=== PATIENT | female | born 1960 | race Caucasian/White ===

== ENCOUNTER 2017-02-26 17:29 | Emergency (ER) | payer OTHER ==
[2017-02-26 19:21] VITALS: BP 130/80
== END 2017-02-26 19:43 | disposition left against medical advice (07) ==
LOC: ED 17:29
DX: R51 Headache (principal); Z53.21 Procedure and treatment not carried out due to patient leaving prior to being seen by health care provider

== ENCOUNTER 2018-05-21 16:28 | Observation (INO) | payer OTHER ==
[2018-05-21] MEDS ORDERED: NS 0.9% 1000 ML* 2,000 ML IV ONE (16:41)
[2018-05-21] MEDS ORDERED: PROCHLORPERAZINE INJ 5 MG/ML 2 ML VIAL IV PRN (16:42)
[2018-05-21 17:04] LABS: ABS Basophils 0 10^3/ul (0-0.2); ABS Eosinophils 0 10^3/ul (0-0.6); ABS Lymphocytes 1.5 10^3/ul (1.0-4.8); ABS Monocytes 0.5 10^3/ul (0-0.8); ABS Neutrophils 8.5 10^3/ul (1.5-7.7); ABS Nucleated RBC 0 10^3/ul; Eosinophil % 0 % (0-6); Hematocrit 46 % (35-47); Hemoglobin 15.6 g/dl (12.0-16.0); Lymphocyte % 14.1 % (25-47); Mean Corpuscular HGB Conc 34 g/dl (31-36); Mean Corpuscular Hemoglobin 33 pg (27-31); Mean Corpuscular Volume 95 fL (80-97); Mean Platelet Volume 7.8 um3 (7.4-10.4); Nucleated Red Blood Cells % 0.1; Platelet Count 269 10^3/ul (150-450); Red Blood Count 4.81 10^6/ul (4.00-5.40); Red Cell Distribution Width 14 % (10.5-15); White Blood Count 10.4 10^3/ul (3.5-10.8)
[2018-05-21 17:17] LABS: EGFR Non-African American 32.2 (>60)
[2018-05-21] MEDS: oxyCODONE TAB* 5 MG TAB PO PRN (18:26)
[2018-05-21 19:51] LABS: Urine Appearance Cloudy; Urine Blood 1+ (Negative); Urine Color Yellow; Urine Ketones 2+ (Negative); Urine Protein 1+(30 mg/dL) (Negative); Urine Specific Gravity 1.013 (1.010-1.030); Urine Urobilinogen Negative (Negative)
[2018-05-21 20:44] LABS: EGFR Non-African American 35.9 (>60)
--- NOTE | 2018-05-21 22:00 | ED ---
Pepe Warner Jacob, scribed clemente Sioux CitySherman MD on 05/21/18 at 1639 . GI/ HPI - HPI Summary HPI Summary: Pt is a 58 y/o F brought in by EMS due to constant emesis for the past two days. In the room, pt states that her vomiting began six months ago. Pt also reports nausea which waxes and wanes, occurring once every couple of months. She states that she has not done anything about this Sx but also notes that she has seen her doctor at the [facility]. She reports that her doctor has been switching her among drugs constantly. Pt states she is on BP meds, taking topamax for migraines alongside "a bunch of other things". She notes that emesis began about the time she started taking topamax six months ago. Pt reports migraines have been less frequent recently but also states that her "brain is screwy" since start of topamax. She denies headaches but states she, "cannot think clearly". Pt denies abdominal pain, abnormal bowel movements, and diarrhea. Pt states she has not smoked cigarettes nor marijuana in past month. - History of Current Complaint Stated Complaint: VOMITING Hx Obtained From: Patient Onset/Duration: Started Weeks Ago - 6 months ago, Still Present Timing: Intermittent Location of Pain: Other - denies pain Associated Signs and Symptoms: Positive: Nausea, Vomiting, Other: - POSITIVE: migraines NEGATIVE: abnormal bowel movements, headaches. Negative: Diarrhea, Abdominal Pain - Allergy/Home Medications Allergies/Adverse Reactions: Allergies Allergy/AdvReac Type Severity Reaction Status Date / Time MS Bee Venom [Bee Venom] Allergy Severe Swelling Verified 07/17/15 10:30 Of Face,Lips,& Throat MS Diphenhydramine Allergy Severe Hives Verified 07/17/15 10:30 [From Benadryl] MS Epinephrine [Epinephrine] Allergy Severe See Comment Verified 07/17/15 10:30 MS Sulfa Drugs [Sulfa Drugs] Allergy Severe Hives Verified 07/17/15 10:30 Home Medications: Home Medications Carbamide Peroxide 6.5% OTIC* [DEBROX 6.5% Otic*] 5 drop BOTH EARS BID PRN 05/21 [History Confirmed 05/21/18] Cholecalciferol TAB* [Vitamin D TAB*] 1,000 unit PO DAILY 05/21/18 [History Confirmed 05/21/18] Gabapentin CAP(*) [Neurontin 300 CAP(*)] 300 mg PO QID 05/21/18 [History Confirmed 05/21/18] Lisinopril TAB* [Prinivil TAB*] 10 mg PO DAILY 05/21/18 [History Confirmed 05/21] Pravastatin (NF) [Pravachol (NF)] 40 mg PO BEDTIME 05/21/18 [History Confirmed 05/21/18] Ranitidine TAB (NF) [Zantac TAB (NF)] 150 mg PO DAILY 05/21/18 [History Confirmed 05/21/18] SUMAtriptan TAB* [Imitrex TAB*] 100 mg PO ONCE PRN 05/21/18 [History Confirmed 05/21/18] Topiramate TAB(*) [Topamax 100 mg tab] 100 mg PO BEDTIME 05/21/18 [History Confirmed 05/21/18] Vitamin E CAP* 400 unit PO DAILY 05/21/18 [History Confirmed 05/21/18] amLODIPine TAB* [Norvasc 5 mg TAB*] 5 mg PO DAILY 05/21/18 [History Confirmed ] PMH/Surg Hx/FS Hx/Imm Hx Endocrine/Hematology History: Denies: Hx Anticoagulant Therapy, Hx Diabetes, Hx Thyroid Disease Cardiovascular History: Denies: Hx Hypertension, Hx Pacemaker/ICD Respiratory History: Denies: Hx Asthma, Hx Chronic Obstructive Pulmonary Disease (COPD) History: Denies: Hx Renal Disease Neurological History: Denies: Hx Dementia, Hx Seizures Psychiatric History: Denies: Hx Substance Abuse Infectious Disease History: Denies: Hx Clostridium Difficile, Hx Hepatitis, Hx Human Immunodeficiency Virus (HIV), Hx Shingles, Hx Tuberculosis - Family History Known Family History: Negative: Blood Disorder - Social History Alcohol Use: Occasionally Substance Use Type: Reports: None Smoking Status (MU): Heavy Every Day Tobacco Smoker Review of Systems Positive: Vomiting, Nausea, Other - NEGATIVE: decreased appetite, abnormal bowel movements. Negative: Abdominal Pain, Diarrhea Neurological: Other - POSITIVE: migraines, "cannot think clearly" All Other Systems Reviewed And Are Negative: Yes Physical Exam - Summary Physical Exam Summary: Appearance: Well-appearing, Well-nourished, lying in bed comfortably Skin: Warm, dry, no obvious rash Eyes: sclera anicteric, no conjunctival pallor ENT: mucous membranes moist, pharynx appears normal Neck: Supple, nontender Respiratory: Clear to auscultation, no signs of respiratory distress Cardiovascular: Pulses are raised, mild tachycardia. Normal otherwise. Abdomen: Soft, nontender, normal active bowel sounds present Musculoskeletal: Normal, Strength/ROM Intact Neurological: A&Ox3, awake and alert, mentation is normal, speech is fluent and appropriate Psychiatric: affect is normal, does not appear anxious or depressed Triage Information Reviewed: Yes Vital Signs On Initial Exam: 1633: Pulse rate 121, o2 saturation 99, BP 128/84, BP mean 96 1640: Temp 96.7, temporal artery scan, pulse rate 123, respiratory rate 18, o2 saturation 98, patient on room air, BP 129/87 Vital Signs Reviewed: Yes Diagnostics - Vital Signs Vital Signs Temp Pulse Resp BP Pulse Ox 05/21/18 20:04 109 124/71 97 05/21/18 20:00 112 99 05/21/18 19:34 114 143/87 98 05/21/18 19:25 109 99 05/21/18 19:24 112 115/82 98 05/21/18 18:08 115 97 05/21/18 17:33 116 137/82 96 05/21/18 17:03 113 137/86 98 05/21/18 17:00 115 99 05/21/18 16:40 35.9 C 123 18 129/87 98 05/21/18 16:33 121 129/84 99 - Laboratory Lab Results: Lab Results 05/21/18 05/21/18 05/21/18 Range/Units 16:51 16:51 19:34 WBC 10.4 (3.5-10.8) 10^3/ul RBC 4.81 (4.00-5.40) 10^6/ul Hgb 15.6 (12.0-16.0) g/dl Hct 46 (35-47) % MCV 95 (80-97) fL MCH 33 H (27-31) pg MCHC 34 (31-36) g/dl RDW 14 (10.5-15) % Plt Count 269 (150-450) 10^3/ul MPV 7.8 (7.4-10.4) um3 Neut % (Auto) 81.3 (38-83) % Lymph % (Auto) 14.1 L (25-47) % [place] % (Auto) 4.3 (0-7) % Eos % (Auto) 0 (0-6) % Baso % (Auto) 0.3 (0-2) % Absolute Neuts (auto) 8.5 H (1.5-7.7) 10^3/ul Absolute Lymphs (auto) 1.5 (1.0-4.8) 10^3/ul Absolute Monos (auto) 0.5 (0-0.8) 10^3/ul Absolute Eos (auto) 0 (0-0.6) 10^3/ul Absolute Basos (auto) 0 (0-0.2) 10^3/ul Absolute Nucleated RBC 0 10^3/ul Nucleated RBC % 0.1 Sodium 130 L (135-145) mmol/L Potassium 3.8 (3.5-5.0) mmol/L Chloride 80 L (101-111) mmol/L Carbon Dioxide 12 L* (22-32) mmol/L Anion Gap 38 H (2-11) mmol/L BUN 21 (6-24) mg/dL Creatinine 1.64 H (0.51-0.95) mg/dL Est GFR ( Amer) 38.9 (>60) Est GFR (Non-Af Amer) 32.2 (>60) BUN/Creatinine Ratio 12.8 (8-20) Glucose 128 H (70-100) mg/dL Lactic Acid (0.5-2.0) mmol/L Calcium 10.2 (8.6-10.3) mg/dL Total Bilirubin 0.60 (0.2-1.0) mg/dL AST 25 (13-39) U/L ALT 16 (7-52) U/L Alkaline Phosphatase 89 (34-104) U/L Total Protein 8.1 (6.4-8.9) g/dL Albumin 4.9 (3.2-5.2) g/dL Globulin 3.2 (2-4) g/dL Albumin/Globulin Ratio 1.5 (1-3) Lipase 40 (11.0-82.0) U/L Urine Color Yellow Urine Appearance Cloudy Urine pH 5.0 (5-9) Ur Specific [place] 1.013 (1.010-1.030) Urine Protein 1+(30 mg/dl) A (Negative) Urine Ketones 2+ A (Negative) Urine Blood 1+ A (Negative) Urine Nitrate Negative (Negative) Urine Bilirubin Negative (Negative) Urine Urobilinogen Negative (Negative) Ur Leukocyte Esterase Trace A (Negative) Urine WBC (Auto) Trace(0-5/hpf) (Absent) Urine RBC (Auto) 1+(3-5/hpf) A (Absent) Ur Squamous Epith Cells Present A (Absent) Urine Bacteria Absent (Absent) Hyaline Casts Present A (Absent) Urine Yeast Present A (Absent) Urine Glucose Negative (Negative) Salicylates (<30) mg/dL 05/21/18 05/21/18 Range/Units 20:20 20:20 WBC (3.5-10.8) 10^3/ul RBC (4.00-5.40) 10^6/ul Hgb (12.0-16.0) g/dl Hct (35-47) % MCV (80-97) fL MCH (27-31) pg MCHC (31-36) g/dl RDW (10.5-15) % Plt Count (150-450) 10^3/ul MPV (7.4-10.4) um3 Neut % (Auto) (38-83) % Lymph % (Auto) (25-47) % [place] % (Auto) (0-7) % Eos % (Auto) (0-6) % Baso % (Auto) (0-2) % Absolute Neuts (auto) (1.5-7.7) 10^3/ul Absolute Lymphs (auto) (1.0-4.8) 10^3/ul Absolute Monos (auto) (0-0.8) 10^3/ul Absolute Eos (auto) (0-0.6) 10^3/ul Absolute Basos (auto) (0-0.2) 10^3/ul Absolute Nucleated RBC 10^3/ul Nucleated RBC % Sodium 131 L (135-145) mmol/L Potassium 3.7 (3.5-5.0) mmol/L Chloride 86 L (101-111) mmol/L Carbon Dioxide 13 L* (22-32) mmol/L Anion Gap 32 H (2-11) mmol/L BUN 21 (6-24) mg/dL Creatinine 1.49 H (0.51-0.95) mg/dL Est GFR ( Amer) 43.5 (>60) Est GFR (Non-Af Amer) 35.9 (>60) BUN/Creatinine Ratio 14.1 (8-20) Glucose 145 H (70-100) mg/dL Lactic Acid 1.6 (0.5-2.0) mmol/L Calcium 8.8 (8.6-10.3) mg/dL Total Bilirubin (0.2-1.0) mg/dL AST (13-39) U/L ALT (7-52) U/L Alkaline Phosphatase (34-104) U/L Total Protein (6.4-8.9) g/dL Albumin (3.2-5.2) g/dL Globulin (2-4) g/dL Albumin/Globulin Ratio (1-3) Lipase (11.0-82.0) U/L Urine Color Urine Appearance Urine pH (5-9) Ur Specific [place] (1.010-1.030) Urine Protein (Negative) Urine Ketones (Negative) Urine Blood (Negative) Urine Nitrate (Negative) Urine Bilirubin (Negative) Urine Urobilinogen (Negative) Ur Leukocyte Esterase (Negative) Urine WBC (Auto) (Absent) Urine RBC (Auto) (Absent) Ur Squamous Epith Cells (Absent) Urine Bacteria (Absent) Hyaline Casts (Absent) Urine Yeast (Absent) Urine Glucose (Negative) Salicylates < 2.50 (<30) mg/dL Result Diagrams: 05/21/18 16:51 05/21/18 20:20 Lab Statement: Any lab studies that have been ordered have been reviewed, and results considered in the medical decision making process. GIGU Course/Dx - Course Course Of Treatment: 58 y/o woman with acute exacerbation of her somewhat chronic vomiting. She has received 2 l IVF and antiemetic but feels only marginally better. Labs are notable for marked metabolic derangement with low bicarb, high AG suggestive of high AG metabolic acidosis; ABG is pending to further delineate the nature of this problem. Of interest she had a less severe version of this in 2015 though I cannot find a record of what became of the problem then. - Diagnoses Provider Diagnoses: Nausea & vomiting, Dehydration, Metabolic acidosis - Physician Notifications Discussed Care Of Patient With: Pavel Maynard Time Discussed With Above Provider: 20:30 Instructed by Provider To: Admit As Inpatient Discharge - Sign-Out/Discharge Documenting (check all that apply): Discharge/Admit/Transfer - Discharge Plan Condition: Guarded Disposition: ADMITTED TO [facility] Referrals: Arthur Lock MD [Primary Care Provider] - - Billing Disposition and Condition Condition: GUARDED Disposition: Admitted to [facility] The documentation as recorded by the Pepe santiago Jacob accurately reflects the service I personally performed and the decisions made by me, Sherman Lynn MD.
[2018-05-21] MEDS ORDERED: Ondansetron ODT TAB* 4 MG PO PRN (22:26)
[2018-05-21] MEDS ORDERED: Melatonin 3 MG TAB PO PRN (22:26)
[2018-05-21] MEDS ORDERED: Albuterol 2.5 MG/3 ML NEB.SOL* (0.083%) INH PRN (22:26)
[2018-05-21] MEDS ORDERED: Acetaminophen SUPP* 650 MG SUPP PR PRN (22:28)
--- NOTE | 2018-05-21 22:29 | HP ---
H&P (Free Text) History and Physical: PCP: Ankur Lock MD Date/Time: 05/21/2018 2150 CC: N/V HPI: Mrs Hartley is a 58YO female exceeding poor historian who states she is here because of N/V for the past 48H. She denies chest pain, SOB, black or bloody content, abdominal pain, F/C, sweats, headache, or other issues. She denies any change or new symptoms today to prompt her evaluation. She has been having episodes of N/V for the past 6 months and [facility]. PMedHx While she denies any medical problems, she admits to taking medications although she cannot say what they are or what they are for. When asked what meds she takes will only reply, "You should have a list of those." Ambulatory Orders Carbamide Peroxide 6.5% OTIC* [DEBROX 6.5% Otic*] 5 drop BOTH EARS BID PRN 05/21 Cholecalciferol TAB* [Vitamin D TAB*] 1,000 unit PO DAILY 05/21/18 Gabapentin CAP(*) [Neurontin 300 CAP(*)] 300 mg PO QID 05/21/18 Lisinopril TAB* [Prinivil TAB*] 10 mg PO DAILY 05/21/18 Pravastatin (NF) [Pravachol (NF)] 40 mg PO BEDTIME 05/21/18 Ranitidine TAB (NF) [Zantac TAB (NF)] 150 mg PO DAILY 05/21/18 SUMAtriptan TAB* [Imitrex TAB*] 100 mg PO ONCE PRN 05/21/18 Topiramate TAB(*) [Topamax 100 mg tab] 100 mg PO BEDTIME 05/21/18 Vitamin E CAP* 400 unit PO DAILY 05/21/18 amLODIPine TAB* [Norvasc 5 mg TAB*] 5 mg PO DAILY 05/21/18 Allergies MS Bee Venom [Bee Venom] Allergy (Severe, Verified 07/17/15 10:30) Swelling Of Face,Lips,& Throat MS Diphenhydramine [From Benadryl] Allergy (Severe, Verified 07/17/15 10:30) Hives MS Epinephrine [Epinephrine] Allergy (Severe, Verified 07/17/15 10:30) See Comment HYPOTENSION, "CARDIAC ARREST" MS Sulfa Drugs [Sulfa Drugs] Allergy (Severe, Verified 07/17/15 10:30) Hives PSurgHx Denies SocHx: denies tobacco although she smells highly of it, denies alcohol and recreational drugs; lives with her boyfriend; unemployed; full code status FamHx: unknown per patient ROS: as above, otherwise reviewed and all were negative vitals: Vital Signs Temp 35.9 C 05/21/18 16:40 Pulse 109 05/21/18 20:04 Resp 18 05/21/18 16:40 BP 124/71 05/21/18 20:04 Pulse Ox 97 05/21/18 20:04 Intake & Output 05/20/18 05/21/18 05/21/18 23:59 11:59 23:59 Intake Total 1000 Balance 1000 Weight 64.864 kg Intake: IV Fluids 1000 Constitutional: NAD, normally developed, overweight unkempt malodorous white female appearing much older than her reported age HEENM: atraumatic; sclera/conjunctiva: anicteric/clear; hearing: clinically intact; oropharynx: clear, mucosa tacky Neck: soft tissue: non-tender; thyroid: non-tender Pulmonary: clear to auscultation bilaterally, fair aeration, no accessory muscle use CV: TR/RR, normal S1S2, no carotid bruit, no jugular venous distention, 2+ B DP/ PT, no edema Abdominal: soft, non-distended, non-tender, no rebound/guarding/rigidity, normoactive bowel sounds, no hepatosplenomegaly or masses, no costovertebral angle tenderness Musculoskeletal: general: grossly intact, non-tender Integumental: normal appearance and texture of exposed skin Psychiatric orientation: AA&O to PPS affect: confrontational mood: irritable, uncooperative eye contact: fair content: entirely unreliable responses: timely insight: poor Testing: Lab Results 05/21/18 05/21/18 05/21/18 Range/Units 16:51 16:51 19:34 WBC 10.4 (3.5-10.8) 10^3/ul RBC 4.81 (4.00-5.40) 10^6/ul Hgb 15.6 (12.0-16.0) g/dl Hct 46 (35-47) % MCV 95 (80-97) fL MCH 33 H (27-31) pg MCHC 34 (31-36) g/dl RDW 14 (10.5-15) % Plt Count 269 (150-450) 10^3/ul MPV 7.8 (7.4-10.4) um3 Neut % (Auto) 81.3 (38-83) % Lymph % (Auto) 14.1 L (25-47) % [place] % (Auto) 4.3 (0-7) % Eos % (Auto) 0 (0-6) % Baso % (Auto) 0.3 (0-2) % Absolute Neuts (auto) 8.5 H (1.5-7.7) 10^3/ul Absolute Lymphs (auto) 1.5 (1.0-4.8) 10^3/ul Absolute Monos (auto) 0.5 (0-0.8) 10^3/ul Absolute Eos (auto) 0 (0-0.6) 10^3/ul Absolute Basos (auto) 0 (0-0.2) 10^3/ul Absolute Nucleated RBC 0 10^3/ul Nucleated RBC % 0.1 ABG pH (7.35-7.45) ABG pCO2 (35-45) mmHg ABG pO2 (80-100) mmHg ABG HCO3 (19-31) mmol/L ABG O2 Saturation (95-98) % ABG Base Excess (-2.0-2.0) Sodium 130 L (135-145) mmol/L Potassium 3.8 (3.5-5.0) mmol/L Chloride 80 L (101-111) mmol/L Carbon Dioxide 12 L* (22-32) mmol/L Anion Gap 38 H (2-11) mmol/L BUN 21 (6-24) mg/dL Creatinine 1.64 H (0.51-0.95) mg/dL Est GFR ( Amer) 38.9 (>60) Est GFR (Non-Af Amer) 32.2 (>60) BUN/Creatinine Ratio 12.8 (8-20) Glucose 128 H (70-100) mg/dL Lactic Acid (0.5-2.0) mmol/L Calcium 10.2 (8.6-10.3) mg/dL Total Bilirubin 0.60 (0.2-1.0) mg/dL AST 25 (13-39) U/L ALT 16 (7-52) U/L Alkaline Phosphatase 89 (34-104) U/L Total Protein 8.1 (6.4-8.9) g/dL Albumin 4.9 (3.2-5.2) g/dL Globulin 3.2 (2-4) g/dL Albumin/Globulin Ratio 1.5 (1-3) Lipase 40 (11.0-82.0) U/L Urine Color Yellow Urine Appearance Cloudy Urine pH 5.0 (5-9) Ur Specific [place] 1.013 (1.010-1.030) Urine Protein 1+(30 mg/dl) A (Negative) Urine Ketones 2+ A (Negative) Urine Blood 1+ A (Negative) Urine Nitrate Negative (Negative) Urine Bilirubin Negative (Negative) Urine Urobilinogen Negative (Negative) Ur Leukocyte Esterase Trace A (Negative) Urine WBC (Auto) Trace(0-5/hpf) (Absent) Urine RBC (Auto) 1+(3-5/hpf) A (Absent) Ur Squamous Epith Cells Present A (Absent) Urine Bacteria Absent (Absent) Hyaline Casts Present A (Absent) Urine Yeast Present A (Absent) Urine Glucose Negative (Negative) Salicylates (<30) mg/dL 05/21/18 05/21/18 05/21/18 Range/Units 20:20 20:20 21:50 WBC (3.5-10.8) 10^3/ul RBC (4.00-5.40) 10^6/ul Hgb (12.0-16.0) g/dl Hct (35-47) % MCV (80-97) fL MCH (27-31) pg MCHC (31-36) g/dl RDW (10.5-15) % Plt Count (150-450) 10^3/ul MPV (7.4-10.4) um3 Neut % (Auto) (38-83) % Lymph % (Auto) (25-47) % [place] % (Auto) (0-7) % Eos % (Auto) (0-6) % Baso % (Auto) (0-2) % Absolute Neuts (auto) (1.5-7.7) 10^3/ul Absolute Lymphs (auto) (1.0-4.8) 10^3/ul Absolute Monos (auto) (0-0.8) 10^3/ul Absolute Eos (auto) (0-0.6) 10^3/ul Absolute Basos (auto) (0-0.2) 10^3/ul Absolute Nucleated RBC 10^3/ul Nucleated RBC % ABG pH 7.31 L (7.35-7.45) ABG pCO2 24 L (35-45) mmHg ABG pO2 82 (80-100) mmHg ABG HCO3 15.3 L (19-31) mmol/L ABG O2 Saturation 97.2 (95-98) % ABG Base Excess -12.2 L (-2.0-2.0) Sodium 131 L (135-145) mmol/L Potassium 3.7 (3.5-5.0) mmol/L Chloride 86 L (101-111) mmol/L Carbon Dioxide 13 L* (22-32) mmol/L Anion Gap 32 H (2-11) mmol/L BUN 21 (6-24) mg/dL Creatinine 1.49 H (0.51-0.95) mg/dL Est GFR ( Amer) 43.5 (>60) Est GFR (Non-Af Amer) 35.9 (>60) BUN/Creatinine Ratio 14.1 (8-20) Glucose 145 H (70-100) mg/dL Lactic Acid 1.6 (0.5-2.0) mmol/L Calcium 8.8 (8.6-10.3) mg/dL Total Bilirubin (0.2-1.0) mg/dL AST (13-39) U/L ALT (7-52) U/L Alkaline Phosphatase (34-104) U/L Total Protein (6.4-8.9) g/dL Albumin (3.2-5.2) g/dL Globulin (2-4) g/dL Albumin/Globulin Ratio (1-3) Lipase (11.0-82.0) U/L Urine Color Urine Appearance Urine pH (5-9) Ur Specific [place] (1.010-1.030) Urine Protein (Negative) Urine Ketones (Negative) Urine Blood (Negative) Urine Nitrate (Negative) Urine Bilirubin (Negative) Urine Urobilinogen (Negative) Ur Leukocyte Esterase (Negative) Urine WBC (Auto) (Absent) Urine RBC (Auto) (Absent) Ur Squamous Epith Cells (Absent) Urine Bacteria (Absent) Hyaline Casts (Absent) Urine Yeast (Absent) Urine Glucose (Negative) Salicylates < 2.50 (<30) mg/dL Impression: 58F HX HTN, GERD, migraines presents with N/V and associated starvation ketosis DIAGNOSIS & PLAN Primary N/V and associated starvation ketosis : IVFs : trend labs : supportive care Secondary HTN : review meds once reconciled GERD : omeprazole Admission Rational: observation for intractable N/V & starvation ketosis DVTp: SCDs Code Status: full HCP: sonCarmine
[2018-05-21] MEDS ORDERED: NS 0.9% 1000 ML* 1,000 ML IV SCH (22:30)
[2018-05-21] MEDS: Pantoprazole IV* 40 MG IV SCH (23:00)
--- NOTE | 2018-05-22 07:28 | RAD ---
INDICATION: Nausea and vomiting. COMPARISON: There are no prior studies available for comparison. TECHNIQUE: Frontal supine films of the abdomen were obtained. FINDINGS: The small bowel and colon appear nondistended. No significant abnormal calcifications are seen. IMPRESSION: NO EVIDENCE FOR OBSTRUCTION.
[2018-05-22] MEDS: Pantoprazole IV* 40 MG IV SCH (08:14)
[2018-05-22] MEDS: oxyCODONE TAB* 5 MG TAB PO PRN (10:17)
[2018-05-22 11:40] VITALS: BP 125/66
--- NOTE | 2018-05-23 02:58 | DS ---
CC: Dr. Lock * DISCHARGE SUMMARY: DATE OF ADMISSION: 05/21/18 DATE OF DISCHARGE: 05/22/18 PRIMARY CARE PROVIDER: Dr. Arthur Lock, [place]. DISCHARGE DIAGNOSES: Dehydration, acute kidney injury, and starvation ketoacidosis due to intractable nausea and vomiting. SECONDARY DIAGNOSES: 1. History of migraine headache, which the patient stated that she did not have migraine headache at this time. 2. The patient is an active smoker. 3. History of hypertension. 4. History of dyslipidemia. MEDICATIONS AT DISCHARGE: Include: 1. Zofran ODT 4 mg every 6 hours p.r.n. 2. Prilosec 20 mg daily. The remaining medications are unchanged and include: 1. Amlodipine 5 mg daily. 2. Vitamin D3 1000 units daily. 3. Neurontin 300 mg 4 times a day. 4. Lisinopril 10 mg daily. 5. Pravachol 40 mg at bedtime. 6. Zantac 150 mg daily. 7. Imitrex 100 mg on a p.r.n. basis. 8. Topamax 100 mg at bedtime. 9. Vitamin E 400 units daily. HOSPITALIZATION COURSE: Melonie Hartley is a 58-year-old female who has history of couple of episodes of nausea, vomiting that coincided with migraine headache this year. She was evaluated at [facility] for that. At this time, she presented with intractable nausea, vomiting, but she denies any problems with headache. She had metabolic acidosis on admission and acute kidney injury, all of this were likely due to marked dehydration that resolved by the time of discharge. By the time of discharge, the patient tolerated liquid diet, but she vomited solids. Nevertheless, she requested to be discharged and stated that "she can handle it from now on." She was prescribed Zofran and Prilosec to use on an as needed basis. She is recommended to follow up with Dr. Lock for upper endoscopy if she continues to have problems with nausea and vomiting. The patient also uses marijuana. She was educated that chronic marijuana use can cause the cyclical nausea and vomiting, which she apparently was aware about from the past. LABORATORY DATA AND STUDIES PERFORMED DURING THE HOSPITAL STAY: Included on 08/30, sodium of 130, potassium 3.5, chloride 95, carbon dioxide 21, BUN 16, creatinine 0.97. Urinalysis showed trace ketones, trace blood, trace rbc's, absent bacteria. Urine toxicology screen was positive for cannabinoids. Abdominal x-ray noted on 05/21/18, impression: "No evidence of obstruction." PHYSICAL EXAMINATION: At the time of discharge, blood pressure of 125/66, heart rate of 94 and regular, respiratory rate 16, oxygen saturation 98% on room air, temperature 98.1. General: The patient is a pleasant 58-year-old female who is in no acute distress. Alert, awake, and oriented x3. HEENT: Head atraumatic, normocephalic. Eyes: Pupils are equal, reactive to light and accommodation. Oropharynx is clear. Mucosa moist. Neck: Supple. No JVD. No bruits bilaterally. Cardiovascular: Regular rate and rhythm. No murmur. Respiratory: Clear to auscultation bilaterally. Abdomen: Soft, nontender. Bowel sounds are present in all 4 quadrants. Extremities: There is no edema. Pulses are +2 bilaterally. No clubbing or cyanosis. Neuro Evaluation: Speech is clear. Cranial nerves II through XII are grossly intact. Motor strength is 5 /5 bilaterally. DISCHARGE INSTRUCTIONS: At discharge, the patient recommended to follow up with clear liquid diet for another day and then advance to full liquid and bland as tolerated. The patient is advised to come back to the emergency department if she recurs with intractable nausea and vomiting. The patient is advised to stop smoking. The patient is recommended to follow up with her primary care provider in 4 to 7 days for evaluation for possibility of upper endoscopy. Please note that this is a short summary of the patient's hospitalization. Please refer to further medical records for details. [id number]/[facility] #: [id number] [facility] CENTERAnnika
== END 2018-05-22 15:40 | disposition home or self-care (01) ==
LOC: ED 16:28 → MEDTELE 21:59
PROVIDERS: ADMIT Hospitalist; ATTEND Internal Medicine
DX: E86.0 Dehydration (principal); N17.9 Acute kidney failure, unspecified; R11.2 Nausea with vomiting, unspecified; E87.2 Acidosis; F17.200 Nicotine dependence, unspecified, uncomplicated; I10 Essential (primary) hypertension; E78.5 Hyperlipidemia, unspecified; Z79.899 Other long term (current) drug therapy; F12.90 Cannabis use, unspecified, uncomplicated; Z88.2 Allergy status to sulfonamides; Z88.8 Allergy status to other drugs, medicaments and biological substances; Z91.030 Bee allergy status
CPT/HCPCS: 36415; 74018; 80048; 80053; 80307; 80329; 81003; 81015; 82803; 83605; 83690; 85025; 87077; 87086; 87186; 96374; 99283; 99406; A9270-GY; G0378; G0480; J0780